=== PATIENT | female | born 1990 | race Two or more races ===

== ENCOUNTER 2018-06-23 08:57 | Inpatient (IN) | payer OTHER ==
[2018-06-23 09:28] LABS: APPEARANCE,URINE CLEAR; BILIRUBIN,URINE NEGATIVE (NEGATIVE); COLOR,URINE STRAW; GLUCOSE, URINE NEGATIVE (NEGATIVE); KETONES,URINE NEGATIVE (NEGATIVE); LEUKOCYTE ESTERASE,URINE NEGATIVE (NEGATIVE); NITRITE,URINE NEGATIVE (NEGATIVE); PROTEIN,URINE 100 mg/dL (NEGATIVE); URINE SPECIFIC GRAVITY 1.004; UROBILINOGEN,URINE NEGATIVE mg/dL (<2.0)
[2018-06-23] MEDS ORDERED: RINGERS SOLUTION,LACTATED 1,000 ML IV ONE (09:28)
[2018-06-23 09:51] LABS: URINE AMPHETAMINES SCREEN NEGATIVE; URINE BARBITURATES SCREEN NEGATIVE; URINE BENZODIAZEPINES SCREEN NEGATIVE; URINE COCAINE SCREEN NEGATIVE; URINE MARIJUANA (THC) SCREEN NEGATIVE; URINE METHADONE SCREEN NEGATIVE; URINE PHENCYCLIDINE SCREEN NEGATIVE
--- NOTE | 2018-06-23 09:54 | Admission Physical ---
Datetime Report Generated by CPN: 06/23/2018 09:54 CURRENT ADMISSION Chief Complaint: Suspected Ruptured Membranes Indication for Induction: Not Applicable Admit Impression : Term, Intrauterine ; No Active Labor; Ruptured Membranes Admit Impression- Other: Thin meconium Admit Plan: Admit to Unit; Initiate Labor Protocol ALLERGIES Medication Allergies: No Medication Allergies: No Known Allergies (06/23/2018) Latex: Unknown OBSTETRICAL HISTORY EDC: 06/30/2018 00:00 : 1 Para: 0 Term: 0 : 0 SAB: 0 IAB: 0 Ectopic: 0 Livin Cesareans: 0 VBACs: 0 Multiple Births: 0 Gestational Diabetes: Yes Rh Sensitization: No Incompetent Cervix: No VIVIANA: No Infertility: No ART Treatment: No Uterine Anomaly: No IUGR: No Hx Previous C/S: No Macrosomia: No Hx Loss/Stillborn: No PIH: No Hx : No Placenta Previa/Abruption: No Depression/PP Depression: No PTL/PROM: No Post Hemorrhage: No Current Procedures: Ultrasound Obstetrical History Comments: G1- Current SEE RECORDS Alcohol: No Marijuana : No Cocaine: No Other Illicit Drugs: No Cigarettes: Former Smoker. 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 Heart Disease: No Hosp/Surgery: No Autoimmune Disorder: No Anesthetic Complications: No Kidney Disease: No Abnormal Pap Smear: No Neuro/Epilepsy: No Psychiatric Disorders: No Other Medical Diseases: No Hepatitis/Liver Disease: No Significant Family History: No Varicosities/Phlebitis: No Trauma/Violence : No Thyroid Dysfunction: No INFECTIOUS HISTORY Gonorrhea: No Genital Herpes: No Chlamydia: No Tuberculosis: No Syphilis: No Hepatitis: No HIV/AIDS Exposure: No Rash or Viral Illness: No HPV: No PHYSICAL EXAM General: Normal HEENT: Normal Neurologic: Normal Heart: Normal Lungs: Normal Abdomen: Normal Genitourinary Exam: Normal Extremities: Normal Pelvic Type: Adequate Vital Signs: Reviewed VAGINAL EXAM Dilatation: 4 Effacement: 70 Station: -1 Contraction Comments: Irregular MEMBRANES Membranes: Ruptured Amniotic Fluid Color: Meconium, Light FETUS A EGA: 39.0 Monitoring: External US FHR- Baseline: 120 Variability: Moderate 6-25bpm Accelerations: 15X15 Decelerations: None Presentation: Vertex PLANS FOR LABOR AND DELIVERY Labor and Delivery: None Pain Management: Epidural Feeding Preference: Breast Benefit of Breast Feed Discussed: Yes Circumcision: N/A INFORMED CONSENT Signature: with User ID: [email or web address]
[2018-06-23 10:09] LABS: ABSOLUTE EOSINOPHILS # (AUTO) 0.1 10^3/uL (0.0-0.6); ABSOLUTE LYMPHOCYTES (AUTO) 2.1 10^3/uL (0.5-4.7); ABSOLUTE MONOCYTES (AUTO) 0.5 10^3/uL (0.1-1.4); ABSOLUTE NEUT (AUTO) 6.5 10^3/uL (1.7-8.2); BASOPHILS % (AUTO) 0.3 % (0-2); EOSINOPHILS % (AUTO) 0.6 % (0-6); HEMATOCRIT 33.8 % (36.0-47.0); HEMOGLOBIN 11.3 g/dL (12.0-15.5); LYMPHOCYTES % (AUTO) 23.2 % (13-45); MEAN CORPUSCULAR HGB CONC 33.3 g/dL (32.0-36.0); MEAN CORPUSCULAR VOLUME 84 fl (80-97); MONOCYTES % (AUTO) 5.8 % (3-13); PLATELET COUNT 272 10^3/uL (150-450); RED BLOOD COUNT 4.01 10^6/uL (3.72-5.28); SEGMENTED NEUTROPHILS % (AUTO) 70.1 % (42-78); TOTAL CELLS COUNTED % (AUTO) 100 %; WHITE BLOOD COUNT 9.2 10^3/uL (4.0-10.5)
[2018-06-23] MEDS ORDERED: OXYTOCIN/NORMAL SALINE 20 UNIT/1,000 ML RTUINJ ONE (11:36)
[2018-06-23] MEDS: RINGERS SOLUTION,LACTATED 1,000 ML IV PRN ×3 (11:48→23:17)
[2018-06-23] MEDS ORDERED: NALBUPHINE HCL INJ 10 MG/1 ML AMPULE ONE (15:46)
[2018-06-23] MEDS ORDERED: PROMETHAZINE HCL INJ 25 MG/1 ML VIAL ONE (15:46)
[2018-06-23] MEDS ORDERED: EPHEDRINE SULFATE INJ 50 MG/1 ML AMPULE ONE (19:16)
[2018-06-23] MEDS ORDERED: PHENYLEPHRINE HCL INJ/PF 10 MG/1 ML SDV ONE (19:16)
[2018-06-23] MEDS ORDERED: FENTANYL CITRATE INJ/PF 100 MCG/2 ML AMPUL ONE (19:16)
[2018-06-23] MEDS ORDERED: BUPIVACAINE HCL 0.5 % INJ/PF 30 ML SDV ONE (19:17)
[2018-06-23] MEDS ORDERED: FENTANYL/BUPIVACAINE/NS/PF 300 MCG/150 ML RTUINJ EPI ONE (19:17)
[2018-06-23] MEDS ORDERED: MISOPROSTOL 0.2 MG TABLET ONE (21:33)
--- NOTE | 2018-06-23 23:13 | L&D Progress Notes ---
PROGRESS NOTES Datetime Report Generated by CPN: 06/23/2018 23:13 PROGRESS NOTE Impression: Normal Progression of Labor Procedures: Sterile Vag Exam Plan: Continue Present Management Vital Signs : Reviewed; Within Normal Limits VAGINAL EXAM Dilatation: 7 Dilatation: 4 Effacement: 90 Effacement: 70 Station: 0 Station: -1 Contractions: q 1-3 min Contractions: Irregular MEMBRANES Membranes: Ruptured Membranes: Ruptured Amniotic Fluid Color: Meconium, Light FETUS A FHR - Baseline: 145 Monitoring: External US Variability: Moderate 6-25bpm Accelerations: 15X15 Decelerations: None FHR Category: Category I Presentation: Vertex SIGNATURE SIGNATURE: [id number] SIGNATURE: ,[id number] Signature: with User ID: [email or web address]
[2018-06-23] MEDS ORDERED: OXYTOCIN 10 UNIT/ML VIAL ONE (23:27)
--- NOTE | 2018-06-24 02:17 | L&D Progress Notes ---
PROGRESS NOTES Datetime Report Generated by CPN: 06/24/2018 02:17 PROGRESS NOTE Impression: Normal Progression of Labor Procedures: Sterile Vag Exam Plan: Continue Present Management Vital Signs : Reviewed; Within Normal Limits VAGINAL EXAM Dilatation: 9 Effacement: 100 Station: 1 Contractions: q 1-2 min MEMBRANES Membranes: Ruptured FETUS A FHR - Baseline: 150 Monitoring: External US Variability: Moderate 6-25bpm Accelerations: 15X15 Decelerations: None FHR Category: Category I FETUS C SIGNATURE: [id number] Signature: with User ID: [email or web address]
[2018-06-24] MEDS ORDERED: METHYLERGONOVINE MALEATE INJ/PF 0.2 MG/1 ML AMPULE ONE (03:44)
[2018-06-24] MEDS ORDERED: CARBOPROST TROMETHAMINE INJ 250 MCG/1 ML AMPULE ONE (03:44)
[2018-06-24] MEDS ORDERED: LOPERAMIDE HCL 2 MG CAPSULE ONE (03:46)
[2018-06-24] MEDS ORDERED: OXYTOCIN 10 UNIT/ML VIAL ONE (03:46)
[2018-06-24] MEDS ORDERED: AMMONIA INHALANTS 10 AMPUL/BOX IH ONE (04:02)
[2018-06-24] MEDS ORDERED: ACETAMINOPHEN 325 MG TABLET ONE (04:33)
[2018-06-24] MEDS ORDERED: ACETAMINOPHEN 1,000 MG/100 ML RTUPB IV ONE (04:35)
[2018-06-24 04:55] LABS: ABSOLUTE LYMPHOCYTES (AUTO) 4.6 10^3/uL (0.5-4.7); ABSOLUTE MONOCYTES (AUTO) 1.6 10^3/uL (0.1-1.4); BASOPHILS % (AUTO) 0.2 % (0-2); EOSINOPHILS % (AUTO) 0.1 % (0-6); HEMATOCRIT 30.8 % (36.0-47.0); LYMPHOCYTES % (AUTO) 19.9 % (13-45); MEAN CORPUSCULAR HEMOGLOBIN 28.1 pg (27.0-33.4); MEAN CORPUSCULAR HGB CONC 32.6 g/dL (32.0-36.0); MEAN CORPUSCULAR VOLUME 86 fl (80-97); MONOCYTES % (AUTO) 6.7 % (3-13); PLATELET COUNT 265 10^3/uL (150-450); RED BLOOD COUNT 3.57 10^6/uL (3.72-5.28); RED CELL DISTRIBUTION WIDTH 15.4 % (11.5-14.0); SEGMENTED NEUTROPHILS % (AUTO) 73.1 % (42-78); TOTAL CELLS COUNTED % (AUTO) 100 %
[2018-06-24] MEDS ORDERED: DIBUCAINE 1% OINTMENT 28 GM TP PRN (05:16)
[2018-06-24] MEDS ORDERED: OXYTOCIN/NORMAL SALINE 20 UNIT/1,000 ML RTUINJ IV PRN (05:16)
[2018-06-24] MEDS ORDERED: BENZOCAINE/MENTHOL AEROSOL SPRAY 56 ML TOP PRN (05:16)
[2018-06-24] MEDS ORDERED: DIPH/PERTUSS(ACELL)/TETANUS VAC/PF 0.5 ML SYR (>=10YO) IM PRN (05:16)
[2018-06-24] MEDS ORDERED: ZOLPIDEM TARTRATE 5 MG TABLET PO PRN (05:16)
[2018-06-24] MEDS ORDERED: HYDROCODONE/ACETAMINOPHEN 5-325 MG TABLET PO PRN (05:16)
[2018-06-24] MEDS ORDERED: MEASLES,MUMPS&RUBELLA VACC/PF 0.5 ML VIAL SUBCUT PRN (05:16)
[2018-06-24 05:59] LABS: WHITE BLOOD COUNT 23.2 10^3/uL (4.0-10.5)
[2018-06-24] MEDS ORDERED: IBUPROFEN 800 MG TABLET ONE (06:54)
[2018-06-24] MEDS: IBUPROFEN 800 MG TABLET PO SCH ×3 (07:05→21:07)
[2018-06-24] MEDS ORDERED: ERTAPENEM SODIUM INJ 1 GM VIAL ONE (07:20)
[2018-06-24] MEDS ORDERED: ERTAPENEM SODIUM INJ 1 GM VIAL IV ONE (08:00)
--- NOTE | 2018-06-24 08:34 | Delivery Summary ---
Del Sum A-C Datetime Report Generated by CPN: 06/24/2018 08:34 DELIVERY PERSONNEL DELIVERY PERSONNEL: [id number] Delivery Doctor:: Dr. Cox Labor and Delivery Nurse:: Brisa King RNmachine operator farmworker Nurse:: Jing Joy RN Nursery Nurse:: Tori Banerjee RN Financial Management Consultant/MOTH EXTERMINATOR: Mary Lucero, ST MATERNAL INFORMATION Delivery Anesthesia: Epidural Medications After Delivery: Pitocin Drip 20 Units/1000ml NSS; Methergine 0.2mg IM; Cytotec 1000mcg Per Rectum/Vagina Meds After Delivery Comment: 20 units of Pitocin added to Pitocin drip 20 units/1000ml NSS, Ofirmev, 2 units PRBCs Maternal Complications: Hemorrhage; Maternal Fever Complication Details: GDM Provider Comments: Pt C_P. Head delivered OA. Anterior and posterior shoulder reduced followed by rest of body. Baby placed on mom's abdomen. After 1 min, cord clamped x 2 and cut by FOB. After 35min, placenta delivered intact with 3VC. During fundal massage, increased vaginal bleeding noted. Cytotec 1mg NJ given. Fundus firm. Lap sponge placed in vagina to complete vaginal repair. Methergine IM given. Lap sponge removed and there was more bleeding and clot behind the sponge. Laceration repair hemostatic. Fundus continues to be firm. Pt reports feeling dizzy and lightheaded. LR bolused. T_C for 2U pRBCs. BP WNL but tachycardic to 200 initially. Sat 93% on RA, O2 face mask placed at 10L with subsequent sat to 100%. With continued IVF bolus, tachycardia improved to 130s. BP remains WNL. LABOR SUMMARY EDC: 06/30/2018 00:00 No. Babies in Womb: 1 Attempted: No Labor Anesthesia: Epidural LABOR INFORMATION Reason for Induction: Not Applicable Onset of Labor: 06/24/2018 07:55 Complete Dilatation: 06/24/2018 02:51 Oxytocin: Augmentation Group B Beta Strep: Negative Antibiotics # of Doses: N/A Antibiotics Time of Last Dose: N/A Name of Antibiotic Given: N/A Steroids Given: None Reason Steroids Not Administered: Not Applicable MEMBRANES Membranes Rupture Method: Spontaneous Rupture of Membranes: 06/23/2018 07:55 Length of Rupture (hr): 19.10 Amniotic Fluid Color: Light Meconium Amniotic Fluid Amount: Moderate Amniotic Fluid Odor: Normal STAGES OF LABOR Stage 1 hr: -5 Stage 1 min: -4 Stage 2 hr: 0 Stage 2 min: 10 Stage 3 hr: 0 Stage 3 min: 39 Total Time in Labor hr: -4 Total Time in Labor min: -15 VAGINAL DELIVERY Episiotomy: None Laceration #1: Perineal; Vaginal Laceration Extension #1: Second Degree Laceration Repair: Yes Laceration Repair Note: Laceration of vagina repaired in running locked fashion with 2.0 Vicryl. Laceration of perineum repaired in subcuticular fashion with 3.0 Vicryl. Initial Vag Sponge Count: 0 Final Vag Sponge Count: 0 Initial Vag Sharps Count: 0 Final Vag Sharps Count: 0 Sponge Count Correct: N/A Sharps Count Correct: Yes CSECTION DELIVERY Primary Indication: N/A Secondary Indication: N/A CSection Incidence: N/A Labor: N/A Elective: N/A CSection Incision: N/A BABY A INFORMATION Delivery Date/Time: 06/24/2018 03:01 Method of Delivery: Vaginal Born in Route : No : N/A Forceps: N/A Vacuum Extraction: N/A Shoulder Dystocia : No PRESENTATION/POSITION BABY A Presentation: Cephalic Cephalic Presentation: Vertex Vertex Position: Left Occipital Posterior Breech Presentation: N/A PLACENTA INFORMATION BABY A Placenta Delivery Time : 06/24/2018 03:40 Placenta Method of Delivery: Spontaneous Placenta Status: Delivered SCORES BABY A Heart Rate 1 min: >100 bpm Resp Effort 1 min: Good Cry Reflex Irritability 1 min: Cough or Sneeze or Pulls Away Muscle Tone 1 min: Some Flexion of Extremities Color 1 min: Blue/Pale Resuscitation Effort 1 min: Tactile Stimulation SCORE 1 MIN: 7 Heart Rate 5 min: >100 bpm Resp Effort 5 min: Good Cry Reflex Irritability 5 min: Cough or Sneeze or Pulls Away Muscle Tone 5 min: Some Flexion of Extremities Color 5 min: Completely [place] SCORE 5 MIN: 9 INFORMATION BABY A Gestational Age at Delivery: 39.1 Gestational Status: Full Term- 39- 40.6 Weeks Infant Outcome : Liveborn Condition : Stable Infant Sex: Female IDENTIFICATION BABY A Infant Verification Date/Time: 06/24/2018 03:57 ID Band Number: [id number] Mother's Name Verified: Yes RN Verifying : Daniella Joy RN Additional Verifying Personnel: Abilio Lucero CST WEIGHT/LENGTH BABY A Infant Birthweight (gm): 4170 Infant Weight (lb): 9 Infant Weight (oz): 3 Length (in): 21.00 Infant Length (cm): 53.34 CORD INFORMATION BABY A No. Cord Vessels: 3 Nuchal Cord : N/A Cord Blood Taken: Yes-For Storage (Mom's Blood type +) Suction: Mouth; Nose ASSESSMENT BABY A Complications: Meconium Physical Findings at Delivery: Caput Succedaneum; Molding of the Head Respirations: Appears Normal Skin to Skin: Yes (Annotations: Nursery RN @ bedside, assisting with BF.) Skin to Skin Time (min): 15 Shoe Packer/ALS Called : No Care By: Jorge Banerjee Transferred To: Remains with Mother BABY B INFORMATION : N/A SIGNATURES Signature: with User ID: [email or web address] : I was personally available for consultation and serving as supervising physician for the MLP.
[2018-06-24] MEDS ORDERED: (PENDING PHARMACY ID) (Prenatal Vit,Calc76/Iron/Folic [Prenatabs Rx Tablet] 1 TAB) PO SCH (10:00)
[2018-06-24] MEDS: FERROUS SULFATE 325 MG TABLET PO SCH ×2 (10:24→17:39)
[2018-06-24] MEDS: PRENATAL VITAMIN W DHA CAPSULE PO SCH (10:24)
[2018-06-24] MEDS: DOCUSATE SODIUM 100 MG CAPSULE PO SCH ×2 (10:25→17:39)
[2018-06-24] MEDS: SENNOSIDES/DOCUSATE 8.6-50 MG 1 EACH TABLET PO SCH (10:25)
[2018-06-24] MEDS ORDERED: ERTAPENEM SODIUM 1 GM in NORMAL SALINE 50 ML IV ONE ×2 (10:30→12:00)
[2018-06-25] MEDS: IBUPROFEN 800 MG TABLET PO SCH ×3 (05:26→21:57)
[2018-06-25] MEDS ORDERED: ERTAPENEM SODIUM INJ 1 GM VIAL IV ONE (08:00)
[2018-06-25 08:15] LABS: HEMOGLOBIN 8.2 g/dL (12.0-15.5); MEAN CORPUSCULAR HEMOGLOBIN 28.6 pg (27.0-33.4); MEAN CORPUSCULAR HGB CONC 34.3 g/dL (32.0-36.0); MEAN CORPUSCULAR VOLUME 83 fl (80-97); PLATELET COUNT 186 10^3/uL (150-450); RED BLOOD COUNT 2.88 10^6/uL (3.72-5.28)
[2018-06-25] MEDS: DOCUSATE SODIUM 100 MG CAPSULE PO SCH ×2 (09:15→17:21)
[2018-06-25] MEDS: SENNOSIDES/DOCUSATE 8.6-50 MG 1 EACH TABLET PO SCH (09:15)
[2018-06-25] MEDS: ERTAPENEM SODIUM 1 GM in NORMAL SALINE 50 ML IV ONE ×2 (09:15→10:29)
[2018-06-25] MEDS: FERROUS SULFATE 325 MG TABLET PO SCH ×2 (09:15→17:21)
[2018-06-25] MEDS: PRENATAL VITAMIN W DHA CAPSULE PO SCH (09:15)
--- NOTE | 2018-06-25 11:36 | PDOC PROGRESS REPORT ---
Subjective Progress Note for:: 06/25/18 Subjective:: Patient states that she feels good; decreasing lochia. She is ambulating and voiding without difficulty. She denies CP, SOB, F/C and N/V. is going well. Reason For Visit: Physical Exam - Physical Exam Vital Signs: Temp Pulse Resp BP Pulse Ox 97.7 F 60 15 105/52 L 99 06/25/18 07:59 06/25/18 07:59 06/25/18 07:59 06/25/18 07:59 06/25/18 07:59 Intake & Output 06/24/18 06/25/18 06/26/18 06:59 06:59 06:59 Intake Total 1406 630 Balance 1406 630 Weight 88.9 kg General appearance: PRESENT: no acute distress Respiratory exam: PRESENT: clear to auscultation ariana Cardiovascular exam: PRESENT: RRR GI/Abdominal exam: PRESENT: normal bowel sounds, soft Extremities exam: ABSENT: calf tenderness, clubbing, full ROM, joint swelling, pedal edema, tenderness, +1 edema, +2 edema, other Result Laboratory Results: 06/25/18 07:47 06/25/18 07:47 WBC 20.0 H RBC 2.88 L Hgb 8.2 L Hct 24.0 L MCV 83 MCH 28.6 MCHC 34.3 RDW 16.0 H Plt Count 186 Assessment & Plan - Diagnosis (1) hemorrhage, delivered Is this a current diagnosis for this admission?: Yes (2) Gestational diabetes mellitus (GDM) in childbirth, diet controlled Is this a current diagnosis for this admission?: Yes (3) Anemia associated with acute blood loss Is this a current diagnosis for this admission?: Yes (4) Rheumatoid arthritis Is this a current diagnosis for this admission?: Yes (5) Vaginal delivery Is this a current diagnosis for this admission?: Yes (6) Chorioamnionitis Is this a current diagnosis for this admission?: Yes - Plan Summary Plan Summary: Plan: 1. POD #1 s/p -doing well 2. Anemia--stable; on FeS04 3. Continue PP care
[2018-06-25] MEDS ORDERED: IRON SUCROSE COMPLEX INJ/PF 100 MG/5 ML SDV IV ONE (12:30)
[2018-06-26] MEDS: IBUPROFEN 800 MG TABLET PO SCH ×2 (06:03→14:25)
--- NOTE | 2018-06-26 08:49 | PDOC PROGRESS REPORT ---
Subjective-OB Progress Note for:: 06/26/18 Subjective: Doing well, ready to go home, , ambulating, voiding and eating well Physical Exam (OB) Vital Signs: Temp Pulse Resp BP Pulse Ox 98.0 F 75 15 121/68 98 06/26/18 08:07 06/26/18 08:07 06/26/18 08:07 06/26/18 08:07 06/26/18 08:07 Intake & Output 06/25/18 06/26/18 06/27/18 06:59 06:59 06:59 Intake Total 630 Balance 630 - PIH/Pre-Eclampsia DTR's: 2 + Clonus: Negative Headache: Absent Epigastric Pain: No Visual Changes: No - Lochia Lochia Amount: Scant < 10 ml Lochia Color: Rubra/Red - Abdomen Description: Soft Hernia Present: Yes Fundal Description: Firm, Midline Describe if Not Midline: slightly to the right Fundal Height: u/u - u/2 Objective-Diagnostic Laboratory: 06/25/18 07:47 Assessment and Plan(PN) - Assessment and Plan (1) Anemia associated with acute blood loss Is this a current diagnosis for this admission?: Yes (2) Chorioamnionitis Qualifiers: Fetus number: single or unspecified fetus Is this a current diagnosis for this admission?: Yes (3) Gestational diabetes mellitus (GDM) in childbirth, diet controlled Is this a current diagnosis for this admission?: Yes (4) hemorrhage, delivered Is this a current diagnosis for this admission?: Yes (5) Rheumatoid arthritis Is this a current diagnosis for this admission?: Yes (6) Vaginal delivery Is this a current diagnosis for this admission?: Yes - Time Spent with Patient Time with patient: Less than 15 minutes Medications reviewed and adjusted accordingly: Yes - Disposition Anticipated Discharge: Home Within: within 24 hours - elevated WBC, repeat if down will d/c home
[2018-06-26] MEDS: SENNOSIDES/DOCUSATE 8.6-50 MG 1 EACH TABLET PO SCH (09:34)
[2018-06-26] MEDS: PRENATAL VITAMIN W DHA CAPSULE PO SCH (09:34)
[2018-06-26] MEDS: DOCUSATE SODIUM 100 MG CAPSULE PO SCH ×2 (09:34→17:42)
[2018-06-26] MEDS: FERROUS SULFATE 325 MG TABLET PO SCH ×2 (09:35→17:42)
[2018-06-26 10:56] LABS: HEMATOCRIT 23.8 % (36.0-47.0); HEMOGLOBIN 8.2 g/dL (12.0-15.5); MEAN CORPUSCULAR HEMOGLOBIN 28.9 pg (27.0-33.4); MEAN CORPUSCULAR HGB CONC 34.7 g/dL (32.0-36.0); MEAN CORPUSCULAR VOLUME 84 fl (80-97); PLATELET COUNT 243 10^3/uL (150-450); RED BLOOD COUNT 2.85 10^6/uL (3.72-5.28); RED CELL DISTRIBUTION WIDTH 15.9 % (11.5-14.0)
[2018-07-11 12:18] VITALS: BP 114/71
--- NOTE | 2018-08-10 13:36 | PDOC DISCHARGE SUMMARY ---
Final Diagnosis Discharge Date: 06/26/18 - Final Diagnosis (1) Anemia associated with acute blood loss Is this a current diagnosis for this admission?: Yes (2) Chorioamnionitis Is this a current diagnosis for this admission?: Yes (3) Gestational diabetes mellitus (GDM) in childbirth, diet controlled Is this a current diagnosis for this admission?: Yes (4) hemorrhage, delivered Is this a current diagnosis for this admission?: Yes (5) Rheumatoid arthritis Is this a current diagnosis for this admission?: Yes (6) Vaginal delivery Is this a current diagnosis for this admission?: Yes Discharge Data - Discharge Medication Home Medications: Vit,Calc76/Iron/Folic [Prenatabs Rx Tablet] 1 tab PO DAILY 06/23/18 Reason(s) for Admission: Induction of Labor Intrapartum Procedure(s): Spontaneous Vaginal Delivery - Diagnosis Test Laboratory: Temp Pulse Resp BP Pulse Ox 98.0 F 96 18 123/76 98 06/26/18 20:09 06/26/18 20:09 06/26/18 20:09 06/26/18 20:09 06/26/18 20:09 06/23/18 06/23/18 06/24/18 09:03 10:00 04:26 RBC 4.01 3.57 L Hgb 11.3 L 10.0 L Hct 33.8 L 30.8 L Urine Opiates Screen NEGATIVE 06/25/18 06/26/18 07:47 10:26 RBC 2.88 L 2.85 L Hgb 8.2 L 8.2 L Hct 24.0 L 23.8 L Urine Opiates Screen - Discharge information/Instructions Discharge Activity: Balance Activity w/Rest, No Lifting Over 10 Pounds, No Lifting/Push/Pulling, Pelvic Rest, No tub bath Discharge Diet: As Tolerated Disposition: HOME, SELF-CARE Follow up with: [facility] in: 4
== END 2018-06-26 21:00 | disposition home or self-care (01) | DRG 805 ==
LOC: LC 08:57 → LR 09:21 → 2S 06-24 09:10
PROVIDERS: ADMIT Obstetrics & Gynecology; ATTEND Obstetrics & Gynecology
PROC: 10E0XZZ Delivery of Products of Conception, External Approach (ICD-10-PCS; principal; 2018-06-23)
PROC: 0KQM0ZZ Repair Perineum Muscle, Open Approach (ICD-10-PCS; 2018-06-23)
PROC: 4A1HXCZ Monitoring of Products of Conception, Cardiac Rate, External Approach (ICD-10-PCS; 2018-06-23)
PROC: 30233N1 Transfusion of Nonautologous Red Blood Cells into Peripheral Vein, Percutaneous Approach (ICD-10-PCS; 2018-06-24)
DX: O77.0 Labor and delivery complicated by meconium in amniotic fluid (principal); O41.1230 Chorioamnionitis, third trimester, not applicable or unspecified; Z37.0 Single live birth; O72.1 Other immediate postpartum hemorrhage; O75.2 Pyrexia during labor, not elsewhere classified; D62 Acute posthemorrhagic anemia; O70.1 Second degree perineal laceration during delivery; O24.429 Gestational diabetes mellitus in childbirth, unspecified control; Z3A.39 39 weeks gestation of pregnancy; Z87.891 Personal history of nicotine dependence; O99.02 Anemia complicating childbirth; O99.89 Other specified diseases and conditions complicating pregnancy, childbirth and the puerperium; M06.9 Rheumatoid arthritis, unspecified
CPT/HCPCS: 36415; 36430; 80307; 81005; 85025; 85027; 86592; 86850; 86900; 86901; 86920; 88307; 94760; J0131; J1335; J2210; J2300; J2370; J2550; J2590; J3010; J3490; P9016

== ENCOUNTER 2020-02-06 11:22 | Emergency (ER) | payer OTHER ==
--- NOTE | 2020-02-06 12:24 | ER Document Report ---
ED Medical Screen (RME) - General Chief Complaint: Abdominal Cramping Stated Complaint: ABDOMINAL CRAMPING Time Seen by Provider: 02/06/20 12:21 Mode of Arrival: Ambulatory Information source: Patient Notes: 29-year-old female presents to ED for complaint of vaginal bleeding and pelvic cramping. She states she is supposed to be about 12 weeks . She states she thinks she passed a mucous plug today. She states she has had no care she goes to the [facility]. She states they told her to come to the emergency room to get assessed. Patient is alert oriented respirations regular and unlabored speaking in full sentences. She is 2 para 1. She is a former smoker does not drink or use any drugs. She does have rheumatoid arthritis. I have greeted and performed a rapid initial assessment of this patient. A comprehensive ED assessment and evaluation of the patient, analysis of test results and completion of medical decision making process will be conducted by an additional ED providers. TRAVEL OUTSIDE OF THE [place] IN LAST 30 DAYS: No - Related Data Allergies/Adverse Reactions: meperidine [From Demerol] Allergy (Verified 02/06/20 12:23) Physical Exam - Vital signs Vitals: Temp Pulse Resp BP Pulse Ox 98.4 F 99 18 128/64 H 99 02/06/20 11:36 02/06/20 11:36 02/06/20 11:36 02/06/20 11:36 02/06/20 11:36 Course - Vital Signs Vital signs: Temp Pulse Resp BP Pulse Ox 98.4 F 99 18 128/64 H 99 02/06/20 11:36 02/06/20 11:36 02/06/20 11:36 02/06/20 11:36 02/06/20 11:36
[2020-02-06 12:56] LABS: ABSOLUTE LYMPHOCYTES (AUTO) 2.4 10^3/uL (0.5-4.7); ABSOLUTE MONOCYTES (AUTO) 0.6 10^3/uL (0.1-1.4); BASOPHILS % (AUTO) 0.1 % (0-2); EOSINOPHILS % (AUTO) 0.3 % (0-6); HEMATOCRIT 35.8 % (36.0-47.0); HEMOGLOBIN 12.4 g/dL (12.0-15.5); MEAN CORPUSCULAR HEMOGLOBIN 30.9 pg (27.0-33.4); MEAN CORPUSCULAR HGB CONC 34.5 g/dL (32.0-36.0); MEAN CORPUSCULAR VOLUME 90 fl (80-97); MONOCYTES % (AUTO) 4.7 % (3-13); PLATELET COUNT 342 10^3/uL (150-450); RED CELL DISTRIBUTION WIDTH 13.6 % (11.5-14.0); SEGMENTED NEUTROPHILS % (AUTO) 74.9 % (42-78); TOTAL CELLS COUNTED % (AUTO) 100 %
[2020-02-06 13:01] LABS: APPEARANCE,URINE SLIGHTLY-CLOUDY; BILIRUBIN,URINE NEGATIVE (NEGATIVE); COLOR,URINE YELLOW; GLUCOSE, URINE NEGATIVE (NEGATIVE); KETONES,URINE NEGATIVE (NEGATIVE); LEUKOCYTE ESTERASE,URINE LARGE (NEGATIVE); NITRITE,URINE NEGATIVE (NEGATIVE); PROTEIN,URINE NEGATIVE (NEGATIVE); URINE SPECIFIC GRAVITY 1.025; UROBILINOGEN,URINE NEGATIVE mg/dL (<2.0)
[2020-02-06 13:15] LABS: ALBUMIN 4.3 g/dL (3.5-5.0); ALKALINE PHOSPHATASE 62 U/L (38-126); ANION GAP 9 (5-19); ASPARTATE AMINO TRANSFERASE 17 U/L (14-36); BILIRUBIN,TOTAL 0.3 mg/dL (0.2-1.3); BLOOD UREA NITROGEN 8 mg/dL (7-20); CALCIUM 9.9 mg/dL (8.4-10.2); CARBON DIOXIDE 24 mmol/L (22-30); CHLORIDE 102 mmol/L (98-107); GLUCOSE 94 mg/dL (75-110); POTASSIUM 4.3 mmol/L (3.6-5.0); TOTAL PROTEIN 8.2 g/dL (6.3-8.2)
--- NOTE | 2020-02-06 14:03 | RADIOLOGY REPORT (SQ) ---
EXAM DESCRIPTION: U/S OB 14+ TRNABD 1GES W/O DOP IMAGES COMPLETED DATE/TIME: 02/06/2020 1:53 pm REASON FOR STUDY: Pelvic pain 12 weeks about vaginal bleedi COMPARISON: None. TECHNIQUE: Static and Dynamic grayscale imaging performed of gravid uterus using transabdominal appr oach. Additional selected color Doppler and spectral images recorded. All stored on PACS. LIMITATIONS: None. FINDINGS: FETUSES SEEN:1 EGA: 14 week 2 day. Calculated using BPD,FL,HC,AC documented on images. Clinical dates 12 week 4 day . CHIN: 08/04/2020. REILLY: Adequate amount. PLACENTA: Posterior. PRESENTATION: Variable. HEART RATE: 157 beats per minute. ANATOMY: A detailed anatomic survey was not performed. No gross anomalies. MATERNAL ADNEXA: Maternal ovaries not visualized. CERVICAL LENGTH: 3.4 cm. Closed. OTHER: No other significant finding. IMPRESSION: LIVING INTRAUTERINE . ESTIMATED GESTATIONAL AGE 14 WEEK 2 DAY. NO VISUALIZED ANOMALIES. Trimester of : Second trimester - 13 weeks 1 day to 27 weeks 6 days. TECHNICAL DOCUMENTATION: JOB ID: [id number] [employer]- All Rights Reserved Reading location - IP/workstation name: [email or web address]
[2020-02-06] MEDS ORDERED: CEPHALEXIN 500 MG CAPSULE PO ONE (16:41)
--- NOTE | 2020-02-06 16:55 | ER Document Report ---
ED General - General Chief Complaint: Abdominal Pain Stated Complaint: ABDOMINAL CRAMPING Time Seen by Provider: 02/06/20 12:21 Primary Care Provider: SIOMARA DONAHUE [Primary Care Provider] - Follow up as needed Mode of Arrival: Ambulatory TRAVEL OUTSIDE OF THE [place] IN LAST 30 DAYS: No - HPI Notes: Patient is a 29-year-old female, G2, P1 at approximately 14 weeks gestation, who presented to the emergency department for evaluation of lower abdominal crampi ng. She states she believes that 3 days ago she "passed her mucous plug." She states it followed a large amount of diarrhea for several days. She said no fevers or chills. No nausea or vomiting. She has had some urinary frequency, but denies any dysuria, hematuria. She denies any vaginal bleeding. She has no history of STDs. She is in a sexually monogamous relationship. She has not yet seen OB. - Related Data Allergies/Adverse Reactions: meperidine [From Demerol] Allergy (Verified 02/06/20 12:23) Home Medications: prenatals, tylenol prn, doxylamine Past Medical History - General Information source: Patient - Social History Smoking Status: Former Smoker Frequency of alcohol use: None Drug Abuse: None Family History: Reviewed & Not Pertinent Patient has homicidal ideation: No Musculoskeletal Medical History: Reports Hx Arthritis - Rheumatoid arthritis Review of Systems - Review of Systems Female Genitourinary: See HPI -: Yes All other systems reviewed and negative Physical Exam - Vital signs Vitals: Temp Pulse Resp BP Pulse Ox 98.4 F 99 18 128/64 H 99 02/06/20 11:36 02/06/20 11:36 02/06/20 11:36 02/06/20 11:36 02/06/20 11:36 - Notes Notes: Vital signs reviewed, please refer to chart. Head is normocephalic, atraumatic. Pupils equal round, reactive to light. Neck is supple without meningismus. Heart is regular rate and rhythm. Lungs are clear to auscultation bilaterally. Abdomen is soft, nontender, normoactive bowel sounds throughout. Extremities without cyanosis, clubbing. Posterior calves are nontender. Peripheral pulses are equal. Skin is warm and dry. Patient is awake, alert, neurological exam is nonfocal. Course - Re-evaluation Re-evalutation: 02/06/20 16:53 Patient presents to the emergency department for evaluation. She had laboratory investigations and imaging as ordered through triage. Her labs revealed a large amount of white blood cells with some trace bacteria in her urine. I will treat her for the bacteriuria with Keflex. I explained to the patient that this needs to be followed up closely. I will refer her to our on-call [facility]. Otherwise ultrasound is unremarkable. The remainder of her labs again not remarkable at this time. The importance of close follow-up was expressed to the patient and she voiced understanding. She is to return to the ED with worsening or new concerning symptoms of any sort. - Vital Signs Vital signs: Temp Pulse Resp BP Pulse Ox 98.5 F 75 16 108/51 L 100 02/06/20 17:08 02/06/20 17:08 02/06/20 17:08 02/06/20 17:08 02/06/20 17:08 - Laboratory Result Diagrams: 02/06/20 12:28 02/06/20 12:28 Laboratory results interpreted by me: 02/06/20 02/06/20 02/06/20 12:28 12:28 12:28 WBC 12.0 H Hct 35.8 L Absolute Neuts (auto) 9.0 H Sodium 135.0 L Beta HCG, Quant 28854.00 H Ur Leukocyte Esterase LARGE H Discharge - Discharge Clinical Impression: Abdominal pain affecting UTI (urinary tract infection) Qualifiers: Urinary tract infection type: site unspecified Hematuria presence: without hematuria Qualified Code(s): N39.0 - Urinary tract infection, site not specified Condition: Stable Disposition: HOME, SELF-CARE Instructions: Pelvic Pain in ([facility]) Additional Instructions: You were noted to have some bacteria and white blood cells in your urine today. You are being treated with an antibiotic for this. Please take it until it is gone. Follow-up closely with [facility]. If you develop increased pain, bleeding, or any other new concerning symptoms, please return immediately to the emergency department for evaluation. Prescriptions: Cephalexin Monohydrate [Keflex 500 mg Capsule] 500 mg PO QID #20 capsule Referrals: [facility] [Primary Care Provider] - Follow up as needed
[2020-02-06 17:08] VITALS: BP 108/51
== END 2020-02-06 17:09 | disposition home or self-care (01) ==
LOC: ER 11:22
DX: O23.41 Unspecified infection of urinary tract in pregnancy, first trimester (principal); O26.891 Other specified pregnancy related conditions, first trimester; R10.9 Unspecified abdominal pain; R10.30 Lower abdominal pain, unspecified; R19.7 Diarrhea, unspecified; R35.0 Frequency of micturition; Z3A.14 14 weeks gestation of pregnancy; Z88.8 Allergy status to other drugs, medicaments and biological substances; Z79.899 Other long term (current) drug therapy; Z87.891 Personal history of nicotine dependence
CPT/HCPCS: 36415; 76805; 80053; 81001; 84702; 85025; 86900; 86901; 87086; 99284